=== PATIENT | male | born 1960 | race Caucasian/White ===

== ENCOUNTER 2016-12-07 03:10 | Emergency (ER) | payer SELFPAY ==
[~2016-12-07] VITALS: Ht 177.8 cm; Wt 65.9 kg
[~2016-12-07 03:10] MED LIST: CYCL10TA9 PO; PRE20 PO
--- NOTE | 2016-12-07 03:15 | ED.REPORT ---
HPI-Dyspnea / Wheezing Date of Service Dec 07, 2016 ED Provider: Satish Kern MD Pt is a 56 year old male with a history of asthma who presents to the ED complaining of worsening SOB onset 1 week ago. He c/o associated cough with clear phlegm. He denies fever and any other symptoms. The pt reports that he is quitting smoking. He has an inhaler at home. Nursing Notes Stated Complaint: DIFFICULTY BREATHING Chief Complaint: SOB Nursing Notes Reviewed: Yes Allergies: Coded Allergies: No Known Allergies (Unverified , 11/09/15) Scheduled Prednisone (PredniSONE) 20 Mg Tablet 20 MG PO TID Prednisone (PredniSONE) 20 Mg Tablet 20 MG PO TID Scheduled PRN Cyclobenzaprine (Cyclobenzaprine) 10 Mg Tablet 10 MG PO TID PRN PRN Spasm General Time Seen by MD: 03:15 Chief Complaint Shortness of breath Hx Obtained From: Patient Arrived By: Walk-in Sudden in Onset?: No Onset Occurred: 1 week ago Symptom Duration: Since onset Severity: Current: No pain currently Severity: Maximum: No pain Recent Healthcare: No recent doctor visit, No recent hospitalization Similar Sx Previous: Yes Past Medical History Past Medical History Reports: Asthma Past Surgical History None reported Smoking History Current Every Day Smoker Social History SOCIAL HISTORY: Pt is currently trying to quit smoking Ambulatory Status Independent Review of Systems Constitutional: Denies: Fever Respiratory: Reports: Dyspnea on exertion, Prod cough, clear, Shortness of breath Complete sys rev & neg: except as marked. Physical Exam Initial Vital Signs Vital Signs (First) Date Time Temp Pulse Resp B/P Pulse Ox O2 Delivery O2 Flow Rate FiO2 12/07/16 03:34 36.6 110 22 167/94 92 Room Air 12/07/16 03:36 2 Initial VS: Reviewed, Vital signs abnormal Head / Eyes: Atraumatic, Normocephalic Extremities: Vascular intact, Neuro intact Skin: Warm, Dry, No cyanosis Neurologic: Alert, Oriented, Nonfocal Psychiatric: Mood/affect normal, Behavior normal General/Constitutional: Awake, Alert Neck: Atraumatic, Full range of motion Respiratory / Chest: Atraumatic Tight wheezing in all lung hansen. Hyperexpanded. Cardiovascular: Heart rate NL, Regular rhythm, Heart sounds NL Interpretation & Diagnostics Lab Results Interpretation Result Diagram: 12/07/16 0320 12/07/16 0320 Test 12/07/16 03:20 White Blood Count 8.6th/mm3 (3.8-10.1) Red Blood Count 5.17mil/mm3 (4.40-5.80) Hemoglobin 16.0g/dL (13.8-17.2) Hematocrit 46.1% (41.0-50.0) Mean Corpuscular Volume 89.2fL (81-100) Mean Corpuscular Hemoglobin 30.9pg (27.0-35.0) Mean Corpuscular Hemoglobin Concent 34.7% (32.0-37.0) Red Cell Distribution Width 12.3% (12.3-15.4) Platelet Count 338bil/L (150-400) Neutrophils (%) (Auto) 42.0% (40-74) Lymphocytes (%) (Auto) 34.0% (14-46) Monocytes (%) (Auto) 11.0% (4-12) Eosinophils (%) (Auto) 11.3% (0-5) Basophils (%) (Auto) 1.5% (0-3) Sodium Level 139mEq/L (134-144) Potassium Level 4.4mEq/L (3.5-5.2) Chloride Level 101mEq/L (97-108) Carbon Dioxide Level 20mmol/L (18-29) Blood Urea Nitrogen 23mg/dL (6-24) Creatinine 1.14mg/dL (0.76-1.27) Estimat Glomerular Filtration Rate 71mL/min (>59) Glucose Level 95mg/dL (60-99) Calcium Level 9.2mg/dL (8.5-10.1) Total Bilirubin 0.5mg/dL (0.0-1.2) Aspartate Amino Transf (AST/SGOT) 22U/L (0-50) Alanine Aminotransferase (ALT/SGPT) 16U/L (0-44) Alkaline Phosphatase 93U/L (25-150) Troponin T 0.010ug/L (0.0-0.011) Total Protein 7.7g/dL (6.4-8.4) Albumin 4.2g/dL (3.4-5.0) Lab values outside NL range: no clinical significance. ECG Interpretation ECG Interpretation: Sinus tachycardia with a rate of 100 Biatrial enlargement Time: 03:26 Interpreted by: ED physician X-Ray Chest Interpretation Chest Xray Interpretation: Normal View: Portable, 1 view Interpretation / Wet Read by: Wet read ED physician Re-Eval/Medical Decision Med Decision/Clinical Course Acute exacerbation of asthma secondary to viral infection. Treated with an responded nicely to nebulizer treatments and slightly Medrol. Discharged home with a refill of his albuterol inhaler and 5 days of prednisone. Source of Hx: Old records Re-Evaluation/Progress #1: Time of Eval: 03:15 Re-Evaluation/Progress Note: Informed pt of plan for treatment. Pt understands and agrees with plan for treatment. All questions addressed. Re-Evaluation/Progress #2: Time of Eval: 04:34 Re-Evaluation/Progress Note: Pt rechecked. Informed pt of plan for discharge. Pt understands and agrees with plan for discharge. F/U instructions and RTER warnings given. All questions addressed. Counseled Regarding: Diagnosis, Lab results, Need for follow-up, When/why to return to ED Discharge & Departure Impression: Primary Impression: Asthma Asthma severity: moderate persistent Asthma complication type: with acute exacerbation Qualified Code: J45.41 - Moderate persistent asthma with (acute) exacerbation Disposition: Home Discharge Condition All VS Reviewed: Yes Condition: Stable Patient Instructions: Asthma (ED) Additional Instructions: Albuterol 1-2 puffs every 4-6 hours as needed for wheezing, with Referrals: [facility] [place] Attestation Portions of this note were transcribed by Kayli Salgado. I, Dr. Kern personally performed the history, physical exam and medical decision-making; I reviewed and confirmed the accuracy of the information in the transcribed note. Signed by: Deon Mariee, 12/07/16. copies to: [facility] Satish Kern MD Dec 07, 2016 03:15 Kayli Scott Dec 07, 2016 03:24
[2016-12-07] MEDS ORDERED: MethylprednisoLONE Sodium Succinate 62.5 mg/mL 2 mL Inj IVPUSH ONE (03:20)
[2016-12-07] MEDS ORDERED: Albuterol-Ipratropium 3 mL Inhalation Solution NEB ONE (03:20)
[2016-12-07] MEDS ORDERED: Albuterol 2.5 mg/3 mL Inhalation Solution NEB ONE (03:20)
[2016-12-07 03:34] VITALS: BP 167/94; PULSE 110; RESP 22; O2SAT 92
[2016-12-07 03:35] LABS: BASOPHILS % (AUTO) 1.5 % (0-3); EOSINOPHILS % (AUTO) 11.3 % (0-5); Mean Corpuscular Hemoglobin 30.9 pg (27.0-35.0); Mean Corpuscular Volume 89.2 fL (81-100); Platelet Count 338 bil/L (150-400)
[2016-12-07 03:36] VITALS: PULSE 110; RESP 21; O2SAT 93
[2016-12-07 03:37] VITALS: BP 145/89; PULSE 91; RESP 15
[2016-12-07 03:52] LABS: TROPONIN T 0.01 ug/L (0.0-0.011)
[2016-12-07] MEDS ORDERED: PRE20 PO (04:27)
[2016-12-07 04:53] VITALS: BP 124/74; PULSE 85; RESP 18; O2SAT 97
[2016-12-07] MEDS ORDERED: Albuterol HFA 200 Puff Inhaler (Vent Pts Only) INHALATION PRN (04:55)
--- NOTE | 2016-12-07 09:17 | DRSVH ---
PROCEDURE: X-RAY CHEST ONE VIEW, PORTABLE ([id number]) INDICATIONS: dyspnea TECHNIQUE: One view of the chest was acquired. COMPARISON: [facility], , CHEST 2VW, 02/08/2012, 3:01. FINDINGS: Surgical changes and devices: None. Lungs and pleura: No pleural effusions or pneumothorax. Lungs are clear. Mediastinum: Mediastinal contours appear normal. Heart size is normal. Bones and chest wall: No suspicious bony lesions. Overlying soft tissues appear unremarkable. Pres umed subcentimeter bone island projecting in the proximal humerus although technically nonspecific IMPRESSION: No acute disease. Dictated by: Johnny Garcia M.D. on 12/07/2016 at 9:15 Approved by: Johnny Garcia M.D. on 12/07/2016 at 9:16
== END 2016-12-07 05:05 | disposition home or self-care (01) ==
LOC: SED 03:10
DX: J45.41 Moderate persistent asthma with (acute) exacerbation (principal); F17.200 Nicotine dependence, unspecified, uncomplicated
CPT/HCPCS: 36415; 71010; 80053; 84484; 85025; 93005; 94640; 94664; 96374; 96375; 99285; J2060; J2930; J7613; J7620